=== PATIENT | male | born 1985 | race Caucasian/White ===

== ENCOUNTER 2018-09-06 20:37 | Emergency (ER) | payer OTHER ==
[~2018-09-06] VITALS: Ht 75 cm; Wt 81.7 kg
[2018-09-06 21:40] LABS: HEMATOCRIT 47.3 % (42.0-52.0); HEMOGLOBIN 16.3 gm/dL (14.0-18.0); MCH 29.5 pg (26.0-34.0); MCHC 34.4 g/dL (28.0-37.0); MCV 85.8 fL (80.0-100.0); MPV 9.8 fl. (7.2-11.1); NUCLEATED RBCS 0 /100WBC; PLATELET COUNT* 204 thou/uL (150-400); RBC 5.52 mil/uL (4.50-6.00); RDW-CV 12.7 % (10.5-14.5); WBC 12.6 thou/uL (4.0-11.0)
[2018-09-06 21:50] LABS: CALCIUM 9.3 mg/dL (8.5-10.1); CREATININE 1.3 mg/dL (0.6-1.3); POTASSIUM 3.8 mmol/L (3.5-5.1)
[2018-09-06 21:54] LABS: ALBUMIN 4.3 g/dL (3.4-5.0); TOTAL BILIRUBIN 0.4 mg/dL (<0.1-1.0); TOTAL PROTEIN 7.8 g/dL (6.4-8.2)
[2018-09-06 21:54] LABS: URINE BILIRUBIN NEGATIVE (Negative); URINE BLOOD NEGATIVE (Negative); URINE CLARITY CLEAR; URINE COLOR YELLOW; URINE GLUCOSE-RANDOM NEGATIVE (Negative); URINE KETONES NEGATIVE (Negative); URINE LEUKOCYTES-REFLEX NEGATIVE (Negative); URINE NITRITE-REFLEX NEGATIVE (Negative); URINE PROTEIN NEGATIVE (Negative); URINE SPECIFIC GRAVITY <= 1.005 (1.005-1.030); URINE UROBILINOGEN 0.2 E.U./dl (0.2-1.0)
[2018-09-06 21:57] LABS: ABSOLUTE LYMPHOCYTES 1.1 thou/uL (0.8-5.3); ABSOLUTE MONOCYTES 0.9 thou/uL (0.0-1.2); ABSOLUTE NEUTROPHILS 10.6 thou/uL (1.6-8.1); PLATELET ESTIMATE ADEQUATE
[2018-09-06 23:14] LABS: AMP/METHAMP Negative (Negative); BARBITURATES Negative (Negative); BENZODIAZEPINES Negative (Negative); COCAINE Negative (Negative); METHADONE Negative (Negative); OPIATES Negative (Negative); PCP Negative (Negative); THC Negative (Negative)
[2018-09-06] MEDS ORDERED: VALIUM2 MG PO (23:41)
[2018-09-06] MEDS ORDERED: VALIUM5 MG PO (23:41)
[2018-09-06 23:59] VITALS: BP 124/81
--- NOTE | 2018-09-07 10:30 | EKG ---
[place] [address] ELECTROCARDIOGRAM REPORT Name: MARJAN REZA Room: [facility]#: [id number] Admission: 09/06/18 Attend Phys: Discharge: 09/07/18 Date of : 85 Report #: [id number] THIS REPORT FOR: //name// [facility] ED Test Date: 2018-09-06 Test Time: 20:47:24 Pat Name: MARJAN GLOVER Department: Room: Gender: M [employer]: : 1985 Requested By: Wanda Rowe Order Number: [id number] MD: John Mohan Measurements Intervals [place] Rate: 65 P: 24 NV: 157 QRS: 44 QRSD: 90 T: 4 QT: 381 QTc: 397 Interpretive Statements Sinus rhythm Nonspecific T abnormalities, lateral leads ST elevation, consider early repolarization No previous ECG available for comparison Electronically Signed On 09-07-2018 10:30:40 [employer] by John Mohan [email or web address] <ELECTRONICALLY SIGNED> By: John Mohan MD, [facility] 09/07/18 1030 46 46 John Mohan MD, FACC /EPI
== END 2018-09-07 00:01 | disposition home or self-care (01) ==
LOC: M.ERS 20:37
PROVIDERS: Personal Emergency Response Attendant
DX: G43.909 Migraine, unspecified, not intractable, without status migrainosus (principal); G56.02 Carpal tunnel syndrome, left upper limb

== ENCOUNTER 2019-03-14 10:33 | Emergency (ER) | payer OTHER ==
[~2019-03-14] VITALS: Ht 167.6 cm; Wt 81.7 kg
[~2019-03-14 10:33] MED LIST: VALIUM2 MG PO; VALIUM5 MG PO
[2019-03-14] MEDS ORDERED: IBUPROFEN 600600 M1 PO (12:05)
[2019-03-14 13:17] VITALS: BP 120/87
== END 2019-03-14 13:19 | disposition home or self-care (01) ==
LOC: M.ERS 10:33
DX: S43.102A Unspecified dislocation of left acromioclavicular joint, initial encounter (principal); G43.909 Migraine, unspecified, not intractable, without status migrainosus; W18.30XA Fall on same level, unspecified, initial encounter; Y93.66 Activity, soccer; Y92.89 Other specified places as the place of occurrence of the external cause; Y99.8 Other external cause status